=== PATIENT | male | born 1970 | race Caucasian/White ===

== ENCOUNTER 2020-01-09 12:39 | Inpatient (IN) ==
[2020-01-09] MEDS ORDERED: ENOXAPARIN 100 MG/ML SYRINGE SUBCUT STA (13:03)
[2020-01-09 13:35] LABS: Basophils % 0.5 % (0.0-0.8); Eosinophils # 0.2 10*3/uL (0.0-0.87); Eosinophils % 2.6 % (0.00-10.9); Hemoglobin 17.9 GM/DL (14.0-18.0); Immature Granulocytes % 0.3 %; Immature Granulocytes Absolute 0.02 #; Lymphocytes # 1.4 10*3/uL (1.4-4.0); Lymphocytes % 21.4 % (21.2-54.2); Mean Corpuscular HGB Conc 33.8 GM/DL (32-36); Mean Corpuscular Volume 86.9 FL (87-102); Mean Platelet Volume 9.1 FL (9.6-12.0); Neutrophils % 69.2 % (38.7-73.9); Platelet Count 187 T/CUMM (130-400); Red Cell Distribution Width 13.2 % (9.3-17.3); White Blood Count 6.5 T/CUMM (4-12)
[2020-01-09 14:12] LABS: Calcium 8.7 MG/DL (8.5-10.1); Osmolality,Calculated 278.5 MOS/KG (273-304)
[2020-01-09] MEDS ORDERED: ONDANSETRON 4 MG/2 ML VIAL IV PRN (14:40)
[2020-01-09] MEDS ORDERED: MAGNESIUM SULF RIDER 2 GM in PREMIX 1 EACH IV PRN (14:40)
[2020-01-09] MEDS ORDERED: ZALEPLON 5 MG CAPSULE PO PRN (14:40)
[2020-01-09] MEDS ORDERED: MAGNESIUM SULF RIDER 4 GM in PREMIX 1 EACH IV PRN (14:40)
[2020-01-09] MEDS: SODIUM CHLORIDE 0.45% 1,000 ML IV SCH (15:30)
[2020-01-09] MEDS ORDERED: ENOXAPARIN 80 MG/0.8 ML SYRINGE SUBCUT SCH (16:00)
[2020-01-09] MEDS ORDERED: TICAGRELOR 90 MG TABLET PO ONE (19:39)
[2020-01-09] MEDS: ASPIRIN EC 81 MG TABLET PO SCH (22:05)
[2020-01-09] MEDS: ROSUVASTATIN 20 MG TABLET PO SCH (22:05)
[2020-01-10] MEDS: SODIUM CHLORIDE 0.45% 1,000 ML IV SCH ×3 (00:13→16:39)
[2020-01-10 05:55] LABS: Calcium 8.4 MG/DL (8.5-10.1); Osmolality,Calculated 275.8 MOS/KG (273-304)
[2020-01-10 05:59] LABS: Basophils % 0.4 % (0.0-0.8); Eosinophils # 0.3 10*3/uL (0.0-0.87); Eosinophils % 3.3 % (0.00-10.9); Hematocrit 47.1 VOL% (42.0-52.0); Hemoglobin 15.8 GM/DL (14.0-18.0); Immature Granulocytes % 0.4 %; Immature Granulocytes Absolute 0.03 #; Lymphocytes # 1.8 10*3/uL (1.4-4.0); Lymphocytes % 23.7 % (21.2-54.2); Mean Corpuscular HGB Conc 33.5 GM/DL (32-36); Mean Corpuscular Volume 87.5 FL (87-102); Mean Platelet Volume 9.4 FL (9.6-12.0); Monocytes % 6.5 % (1.7-12.7); Neutrophils % 65.7 % (38.7-73.9); Platelet Count 188 T/CUMM (130-400); Red Blood Count 5.38 MC/CUMM (3.8-5.5); Red Cell Distribution Width 13.2 % (9.3-17.3); White Blood Count 7.7 T/CUMM (4-12)
[2020-01-10] MEDS ORDERED: LIDOCAINE 1% 20 ML VIAL ONE (07:05)
[2020-01-10] MEDS ORDERED: HEPARIN/NACL 0.9% 2 UNITS/ML 1,000 ML IV ONE (07:05)
[2020-01-10] MEDS: TICAGRELOR 90 MG TABLET PO SCH ×2 (11:56→21:55)
[2020-01-10] MEDS: PANTOPRAZOLE 40 MG TABLET PO SCH ×2 (11:56→14:57)
[2020-01-10] MEDS ORDERED: DIAZEPAM 5 MG TABLET PO ONE (12:00)
[2020-01-10] MEDS ORDERED: diphenhydrAMINE CAP 25 MG CAPSULE PO ONE (12:00)
[2020-01-10] MEDS ORDERED: MIDAZOLAM 2 MG/2 ML VIAL ONE ×2 (13:26→13:36)
[2020-01-10] MEDS ORDERED: ASPIRIN CHEW 81 MG TABLET PO ONE (13:26)
[2020-01-10] MEDS ORDERED: fentaNYL 100 MCG/2 ML VIAL ONE (13:27)
[2020-01-10] MEDS ORDERED: MORPHINE 4 MG/1 ML VIAL IV PRN (14:39)
[2020-01-10] MEDS ORDERED: ACETAMINOPHEN 325 MG TABLET PO PRN (14:39)
[2020-01-10] MEDS ORDERED: ACETAMINOPHEN/CODEINE 300-30 MG TABLET PO PRN (14:39)
[2020-01-10] MEDS: ASPIRIN EC 81 MG TABLET PO SCH (21:55)
[2020-01-10] MEDS: ROSUVASTATIN 20 MG TABLET PO SCH (21:55)
[2020-01-10] MEDS: RANOLAZINE 500 MG TABLET PO SCH (21:55)
[2020-01-11 04:14] VITALS: BP 107/63
[2020-01-11 06:17] LABS: Basophils % 0.1 % (0.0-0.8); Eosinophils # 0.2 10*3/uL (0.0-0.87); Eosinophils % 2.4 % (0.00-10.9); Hematocrit 47.4 VOL% (42.0-52.0); Hemoglobin 16.4 GM/DL (14.0-18.0); Immature Granulocytes % 0.5 %; Immature Granulocytes Absolute 0.04 #; Lymphocytes # 1.8 10*3/uL (1.4-4.0); Lymphocytes % 22.3 % (21.2-54.2); Mean Corpuscular HGB Conc 34.6 GM/DL (32-36); Mean Corpuscular Volume 85.3 FL (87-102); Mean Platelet Volume 9.4 FL (9.6-12.0); Monocytes % 6.4 % (1.7-12.7); Neutrophils % 68.3 % (38.7-73.9); Platelet Count 170 T/CUMM (130-400); Red Blood Count 5.56 MC/CUMM (3.8-5.5); Red Cell Distribution Width 13.2 % (9.3-17.3)
[2020-01-11] MEDS: SODIUM CHLORIDE 0.45% 1,000 ML IV SCH (06:22)
[2020-01-11 06:34] LABS: Calcium 8.7 MG/DL (8.5-10.1); Osmolality,Calculated 275.7 MOS/KG (273-304)
[2020-01-11 06:37] LABS: Risk Ratio 2.85
[2020-01-11] MEDS: RANOLAZINE 500 MG TABLET PO SCH (09:12)
[2020-01-11] MEDS: TICAGRELOR 90 MG TABLET PO SCH (09:12)
[2020-01-11] MEDS: PANTOPRAZOLE 40 MG TABLET PO SCH (09:12)
== END 2020-01-11 09:56 | disposition home or self-care (01) | DRG 282 ==
LOC: N.ED 12:39 → N.EDINP 14:40 → N.TELES 16:03 → N.CLINP 01-11 05:39 → N.TELES 01-11 05:41
PROVIDERS: ADMIT Internal Medicine Cardiovascular Disease; ATTEND Internal Medicine Cardiovascular Disease